=== PATIENT | female | born 1960 | race American Indian/Alaskan Native ===

== ENCOUNTER 2017-05-23 01:59 | Inpatient (IN) | payer BC ==
[2017-05-23] MEDS ORDERED: TYLENOL PO ONE (02:38)
[2017-05-23 03:35] LABS: Basophils % (Auto) 0.2 % (0.0-1.8); Hematocrit 36.5 % (30.3-42.9); Hemoglobin 12.3 gm/dl (10.1-14.3); Lymphocytes # (Auto) 0.5 K/mm3 (1.2-5.4); Lymphocytes % (Auto) 7.5 % (13.4-35.0); Mean Corpuscular HGB Conc 34 % (30-34); Mean Corpuscular Hemoglobin 31 pg (28-32); Mean Corpuscular Volume 92 fl (79-97); Monocytes # (Auto) 0.6 K/mm3 (0.0-0.8); Monocytes % (Auto) 9.4 % (0.0-7.3); Platelet Count 125 K/mm3 (140-440); Red Blood Count 3.96 M/mm3 (3.65-5.03); Red Cell Distribution Width 13.3 % (13.2-15.2)
[2017-05-23 04:00] LABS: Alanine Aminotransferase 17 units/L (7-56); BUN/Creatinine Ratio 12; Blood Urea Nitrogen 12 mg/dL (7-17); Calcium 8.6 mg/dL (8.4-10.2); Hemolysis Index 2
[2017-05-23 04:04] LABS: Creatine Kinase MB < 1.0 ng/mL (0.0-4.0)
[2017-05-23] MEDS ORDERED: BOOSTRIX IM ONE (06:52)
[2017-05-23] MEDS ORDERED: NACL 0.9% 1000 ML 1,000 ML IV ONE ×2 (06:53→07:27)
[2017-05-23 06:59] LABS: Bilirubin,Urine NEG (Negative); Blood,Urine NEG (Negative); Color,Urine Yellow (Yellow); Mucus,Urine FEW /HPF; Nitrite,Urine NEG (Negative); Protein,Urine <15 mg/dL mg/dL (Negative); Urobilinogen,Urine < 2.0 mg/dL (<2.0)
--- NOTE | 2017-05-23 07:07 | XRay Report ---
FINAL REPORT EXAM: XR CHEST 1V AP HISTORY: cough, fever, syncope TECHNIQUE: A portable upright view of the chest was submitted. FINDINGS: Heart size and mediastinum appear normal. The lungs are clear. Pleural fluid is not seen. There EKG leads overlying the chest wall. The bones and soft tissues do not show any acute changes. IMPRESSION: No active chest disease.
--- NOTE | 2017-05-23 07:21 | Cat Scan Report ---
FINAL REPORT EXAM: CT HEAD/BRAIN WO CON HISTORY: Syncope TECHNIQUE: Routine axial imaging was obtained of the brain without IV contrast. FINDINGS: The ventricular system is appropriate in size and is symmetric. There is no evidence of acute stroke or hemorrhage. The basal cisterns appear normal. The visualized sinuses are clear. The mastoid air cells are well pneumatized. IMPRESSION: Within normal limits.
[2017-05-23] MEDS ORDERED: NACL ONE (07:39)
[2017-05-23] MEDS ORDERED: cefTRIAXone 1 GM in NACL 0.9% 20 ML IV ONE (08:00)
[2017-05-23] MEDS ORDERED: ROCEPHIN/NS 1 GM/50 ML 1 GM/50 ML BAG IV ONE (08:00)
--- NOTE | 2017-05-23 10:57 | Emergency Department Report ---
ED Syncope HPI - General Chief Complaint: Syncope Stated Complaint: SYNCOPE Time Seen by Provider: 05/23/17 06:19 Source: patient, old records (no previous meditech record) Exam Limitations: no limitations - History of Present Illness Initial Comments: 57-year-old female with a past medical history of breast cancer in remission since 2016 and hyperlipidemia presents to the hospital with 3 episodes of syncope last night. Patient states she was ambulating and then woke up on the floor. She denies any preceding symptoms. Patient had a second syncopal episode while trying to stand. EMS came to scene to evaluate patient. She was told she had normal vital signs social elected not to come to the hospital. While ambulating to the bathroom later she had a second syncopal episode without any preceding symptoms. Patient has an abrasion to her left cheek and a small laceration to her anterior chin. She denies headache, chest pain, shortness of breath, nausea, vomiting, diaphoresis, melena, hematochezia, or abdominal pain. Patient has been feeling fatigued the last several days with decreased by mouth intake. Denies dysuria or fever at home. Dry cough reported. Patient had recent travel from [place] 3 days ago. Denies calf tenderness, unilateral edema, or history of PE/DVT. Patient presents to the ED with fever. - Related Data Allergies/Adverse Reactions: Allergies procaine [From Novocain] Adverse Reaction (Verified 05/23/17 02:35) Swelling ED Review of Systems ROS: Stated complaint: SYNCOPE Other details as noted in HPI Comment: All other systems reviewed and negative Other: Constitutional: No fevers chills or weight loss Eyes: No eye pain visual changes or discharge ENT: No ear pain or throat pain Neck: Denies pain Respiratory: Denies cough wheezing shortness of breath Cardiovascular: Denies chest pain, palpitations GI: Denies abdominal pain, nausea, vomiting, diarrhea : Denies dysuria Musculoskeletal: Denies back pain Skin: Denies rash, lesions, erythema Neurologic: Denies headache, numbness, weakness Psychiatric: Denies suicidal ideation, hallucinations ED Past Medical Hx - Past Medical History Previous Medical History?: Yes Hx of Cancer: Yes (left breast; remission-2016) Additional medical history: hperlipidemia - Surgical History Hx Breast Surgery: Yes (left) - Social History Smoking Status: Never Smoker Substance Use Type: None ED Physical Exam - General Limitations: No Limitations - Other Other exam information: General: No limitations, patient is alert in no acute distress Head exam: Atraumatic, normocephalic Eyes exam: Normal appearance ENT: Moist mucous membrane, normal oropharynx Neck exam: Normal inspection, full range of motion, no meningismus nontender Respiratory exam: Clear to auscultation bilateral, no wheezes, rales, crackles Cardiovascular: Normal rate and rhythm, normal heart sounds Abdomen: Soft, nondistended, and nontender, with normal bowel sounds, no rebound, or guarding Extremity: Full range of motion normal inspection no deformity, no calf tenderness or edema Back: Normal Inspection, full range of motion, no tenderness Neurologic: Alert, oriented x3, cranial nerves intact, no motor or sensory deficit Psychiatric: normal affect, normal mood Skin: Warm, dry, intact ED Course Vital Signs 05/23/17 05/23/17 05/23/17 02:23 03:48 05:54 Temperature 102.9 F H Pulse Rate 78 69 Respiratory 16 16 16 Rate Blood Pressure 116/54 104/50 Blood Pressure [Left] O2 Sat by Pulse 98 97 Oximetry 05/23/17 05/23/17 05/23/17 06:00 06:16 06:34 Temperature 99.1 F Pulse Rate 83 76 Respiratory 16 13 Rate Blood Pressure 104/50 117/49 Blood Pressure [Left] O2 Sat by Pulse 99 98 Oximetry 05/23/17 05/23/17 05/23/17 06:35 06:39 06:45 Temperature Pulse Rate 62 73 Respiratory 16 16 18 Rate Blood Pressure 117/49 117/49 Blood Pressure [Left] O2 Sat by Pulse 96 98 98 Oximetry 05/23/17 05/23/17 05/23/17 07:00 07:15 07:31 Temperature Pulse Rate 66 62 62 Respiratory 9 L 13 19 Rate Blood Pressure 105/52 103/57 103/57 Blood Pressure [Left] O2 Sat by Pulse 98 100 99 Oximetry 05/23/17 05/23/17 05/23/17 07:45 08:00 08:06 Temperature Pulse Rate 66 65 Respiratory 15 9 L 16 Rate Blood Pressure 103/57 119/56 Blood Pressure [Left] O2 Sat by Pulse 100 97 Oximetry 05/23/17 05/23/17 05/23/17 08:15 08:31 08:45 Temperature Pulse Rate 65 65 66 Respiratory 15 10 L 11 L Rate Blood Pressure 119/56 119/56 119/56 Blood Pressure [Left] O2 Sat by Pulse 100 99 100 Oximetry 05/23/17 05/23/17 05/23/17 09:01 09:15 09:31 Temperature Pulse Rate 69 62 65 Respiratory 17 9 L 11 L Rate Blood Pressure 136/77 136/77 136/77 Blood Pressure [Left] O2 Sat by Pulse 99 99 99 Oximetry 05/23/17 05/23/17 09:45 11:51 Temperature 99.4 F Pulse Rate 63 82 Respiratory 13 18 Rate Blood Pressure 136/77 Blood Pressure 122/84 [Left] O2 Sat by Pulse 98 98 Oximetry ED Medical Decision Making - Lab Data Result diagrams: 05/23/17 03:09 05/23/17 03:09 Lab Results 05/23/17 05/23/17 05/23/17 Range/Units 02:40 03:09 03:09 WBC 6.5 (4.5-11.0) K/mm3 RBC 3.96 (3.65-5.03) M/mm3 Hgb 12.3 (10.1-14.3) gm/dl Hct 36.5 (30.3-42.9) % MCV 92 (79-97) fl MCH 31 (28-32) pg MCHC 34 (30-34) % RDW 13.3 (13.2-15.2) % Plt Count 125 L (140-440) K/mm3 Lymph % (Auto) 7.5 L (13.4-35.0) % [place] % (Auto) 9.4 H (0.0-7.3) % Eos % (Auto) 0.0 (0.0-4.3) % Baso % (Auto) 0.2 (0.0-1.8) % Lymph # 0.5 L (1.2-5.4) K/mm3 [place] # 0.6 (0.0-0.8) K/mm3 Eos # 0.0 (0.0-0.4) K/mm3 Baso # 0.0 (0.0-0.1) K/mm3 Seg Neutrophils % 82.9 H (40.0-70.0) % Seg Neutrophils # 5.4 (1.8-7.7) K/mm3 D-Dimer (0-234) ng/mlDDU Sodium 141 (137-145) mmol/L Potassium 3.9 (3.6-5.0) mmol/L Chloride 102.0 (98-107) mmol/L Carbon Dioxide 22 (22-30) mmol/L Anion Gap 21 mmol/L BUN 12 (7-17) mg/dL Creatinine 1.0 (0.7-1.2) mg/dL Estimated GFR > 60 ml/min BUN/Creatinine Ratio 12 % Glucose 113 H (65-100) mg/dL Calcium 8.6 (8.4-10.2) mg/dL Total Bilirubin 0.40 (0.1-1.2) mg/dL AST 28 (5-40) units/L ALT 17 (7-56) units/L Alkaline Phosphatase 51 (35-129) units/L Total Creatine Kinase 167 H (30-135) units/L CK-MB (CK-2) < 1.0 (0.0-4.0) ng/mL CK-MB (CK-2) Rel Index 0.5 (0-4) Troponin T < 0.010 (0.00-0.029) ng/mL Total Protein 6.6 (6.3-8.2) g/dL Albumin 4.0 (3.9-5) g/dL Albumin/Globulin Ratio 1.5 % Urine Color Yellow (Yellow) Urine Turbidity Clear (Clear) Urine pH 6.0 (5.0-7.0) Ur Specific [place] 1.014 (1.003-1.030) Urine Protein <15 mg/dl (Negative) mg/dL Urine Glucose (UA) Neg (Negative) mg/dL Urine Ketones Tr (Negative) mg/dL Urine Blood Neg (Negative) Urine Nitrite Neg (Negative) Urine Bilirubin Neg (Negative) Urine Urobilinogen < 2.0 (<2.0) mg/dL Ur Leukocyte Esterase Mod (Negative) Urine WBC (Auto) 15.0 H (0.0-6.0) /HPF Urine RBC (Auto) 3.0 (0.0-6.0) /HPF U Epithel Cells (Auto) 1.0 (0-13.0) /HPF Urine Mucus Few /HPF 05/23/17 Range/Units 07:02 WBC (4.5-11.0) K/mm3 RBC (3.65-5.03) M/mm3 Hgb (10.1-14.3) gm/dl Hct (30.3-42.9) % MCV (79-97) fl MCH (28-32) pg MCHC (30-34) % RDW (13.2-15.2) % Plt Count (140-440) K/mm3 Lymph % (Auto) (13.4-35.0) % [place] % (Auto) (0.0-7.3) % Eos % (Auto) (0.0-4.3) % Baso % (Auto) (0.0-1.8) % Lymph # (1.2-5.4) K/mm3 [place] # (0.0-0.8) K/mm3 Eos # (0.0-0.4) K/mm3 Baso # (0.0-0.1) K/mm3 Seg Neutrophils % (40.0-70.0) % Seg Neutrophils # (1.8-7.7) K/mm3 D-Dimer 334.19 H (0-234) ng/mlDDU Sodium (137-145) mmol/L Potassium (3.6-5.0) mmol/L Chloride (98-107) mmol/L Carbon Dioxide (22-30) mmol/L Anion Gap mmol/L BUN (7-17) mg/dL Creatinine (0.7-1.2) mg/dL Estimated GFR ml/min BUN/Creatinine Ratio % Glucose (65-100) mg/dL Calcium (8.4-10.2) mg/dL Total Bilirubin (0.1-1.2) mg/dL AST (5-40) units/L ALT (7-56) units/L Alkaline Phosphatase (35-129) units/L Total Creatine Kinase (30-135) units/L CK-MB (CK-2) (0.0-4.0) ng/mL CK-MB (CK-2) Rel Index (0-4) Troponin T (0.00-0.029) ng/mL Total Protein (6.3-8.2) g/dL Albumin (3.9-5) g/dL Albumin/Globulin Ratio % Urine Color (Yellow) Urine Turbidity (Clear) Urine pH (5.0-7.0) Ur Specific [place] (1.003-1.030) Urine Protein (Negative) mg/dL Urine Glucose (UA) (Negative) mg/dL Urine Ketones (Negative) mg/dL Urine Blood (Negative) Urine Nitrite (Negative) Urine Bilirubin (Negative) Urine Urobilinogen (<2.0) mg/dL Ur Leukocyte Esterase (Negative) Urine WBC (Auto) (0.0-6.0) /HPF Urine RBC (Auto) (0.0-6.0) /HPF U Epithel Cells (Auto) (0-13.0) /HPF Urine Mucus /HPF - EKG Data -: EKG Interpreted by Pr EKG shows normal: sinus rhythm, axis (1), QRS complexes (81), ST-T waves ( anteroseptal infarct) Rate: normal (76) - Radiology Data Radiology results: report reviewed Read by radiology CT head: No acute findings Chest x-ray: No acute finding VQ scan: normal - Medical Decision Making Pt states she had an allergy to IV dye therefore V/Q was obtained for elevated d -dimer recent travel history and associated syncope. No signs of PE at this time. I suspect the patient had a UTI which resulted in poor by mouth intake and dehydration as evident by orthostatic vitals. Treatment initiated in the ED. Patient stable. Hospitalist informed - Differential Diagnosis pneumonia, uti, dehydration, pe, arrhythmia, ICA Critical Care Time: No Critical care attestation.: If time is entered above; I have spent that time in minutes in the direct care of this critically ill patient, excluding procedure time. ED Disposition Clinical Impression: Syncope, UTI (urinary tract infection), Dehydration, Thrombocytopenia, Fever Disposition: TO HOME OR SELFCARE Is pt being admited?: Yes Condition: Stable Time of Disposition: 11:50 (Dr Matthew/hosp)
--- NOTE | 2017-05-23 11:46 | Nuclear Medicine Report ---
LUNG SCAN, VENTILATION AND PERFUSION: Inhalation of Xenon gas demonstrates a normal distribution of the activity throughout both lungs. The wash out phases show no focal retention of activity. After injection of Technetium 99m macroaggregated albumin gamma camera imaging of the lungs in multiple projections demonstrates normal pulmonary contours with a homogeneous distribution of activity. No focal areas of perfusion deficiency are identified. IMPRESSION: Normal study.
--- NOTE | 2017-05-23 13:03 | History and Physical Report ---
History of Present Illness Chief complaint: I passed out History of present illness: 57 YO Female with HLD, Breast Cancer presents to ED for evaluation. Pt states that she has passed out 3 times over the past 24 hours. Pt states that she was ambulating when she lost consciousness and subsequently woke up on the floor. Patient denies any preceding symptoms. EMS was notified and upon arrival the pateint was found to be lethargic and was transported to [facility] for evaluation. Patient has an abrasion to her left cheek and a small laceration to her anterior chin. Pt denies headache, vertigo, chest pain, shortness of breath, NVD, melena, dysuria, hematochezia, or abdominal pain. Patient acknowledges feeling fatigued with decreased oral intake. Pt seen and evaluated in ED and found to have lethargy and admitted to medical floor. Past History Past Medical History: hyperlipidemia Past Surgical History: Other (breast surgery) Social history: single. denies: smoking, alcohol abuse, prescription drug abuse Family history: hypertension Medications and Allergies Allergies Allergy/AdvReac Type Severity Reaction Status Date / Time procaine [From Novocain] AdvReac Swelling Verified 05/23/17 02:35 Home Medications Medication Instructions Recorded Confirmed Last Taken Type Atorvastatin Calcium [Lipitor] 20 mg PO HS 05/23/17 05/23/17 05/21/17 History Biotin 5 mg PO DAILY 05/23/17 05/23/17 05/21/17 History Cholecalciferol (Vitamin D3) 1,000 unit PO DAILY 05/23/17 05/23/17 05/21/17 History [Vitamin D3] Cyanocobalamin (Vitamin B-12) 500 mcg PO DAILY 05/23/17 05/23/17 05/21/17 History [Vitamin B-12] Multivit/Folic Acid/Vit K1 1 each PO DAILY 05/23/17 05/23/17 05/21/17 History [One-A-Day Women's 50 Plus Tab] [place] Oil/Provencal-3 Fatty Acids 4 each PO DAILY 05/23/17 05/23/17 05/21/17 History [[place] Oil 1,000 mg Softgel] Tamoxifen Citrate 10 mg PO BID 05/23/17 05/23/17 05/21/17 History Tocopherol [Vitamin E Cap] 400 unit PO BID 05/23/17 05/23/17 05/21/17 History Review of Systems Constitutional: no weight loss, no weight gain, no fever Ears, nose, mouth and throat: no ear pain, no ear discharge, no tinnitis, no decreased hearing, no nose pain, no nasal congestion, no nasal discharge Breasts: no change in shape, no swelling, no mass Cardiovascular: syncope, no chest pain, no orthopnea, no palpitations, no rapid/ irregular heart beat, no edema, no shortness of breath Respiratory: no cough, no cough with sputum, no excessive sputum, no hemoptysis , no shortness of breath Gastrointestinal: no abdominal pain, no nausea, no vomiting, no diarrhea, no constipation Genitourinary Female: no pelvic pain, no flank pain, no menorrhagia, no dysuria , no urinary frequency Rectal: no pain, no incontinence, no bleeding Musculoskeletal: no neck stiffness, no neck pain, no shooting arm pain, no arm numbness/tingling, no low back pain Integumentary: no rash, no pruritis, no redness, no sores, no wounds, no jaundice Neurological: syncope, no paralysis, no weakness, no parathesias, no numbness, no tingling, no seizures Psychiatric: no anxiety, no memory loss, no change in sleep habits, no sleep disturbances, no insomnia, no hypersomnia, no change in appetite Endocrine: no cold intolerance, no heat intolerance, no polyphagia, no excessive thirst, no polydipsia, no polyuria, no nocturia Hematologic/Lymphatic: no easy bruising, no easy bleeding Allergic/Immunologic: no urticaria, no allergic rhinitis, no wheezing Exam - Constitutional Vitals: Temp Pulse Resp BP Pulse Ox 99.4 F 82 18 122/84 98 05/23/17 11:51 05/23/17 11:51 05/23/17 11:51 05/23/17 11:51 05/23/17 11:51 General appearance: Present: mild distress - EENT Eyes: Present: PERRL ENT: hearing intact, clear oral mucosa - Neck Neck: Present: supple, normal ROM - Respiratory Respiratory effort: normal Respiratory: bilateral: CTA - Cardiovascular Heart Sounds: Present: S1 & S2. Absent: rub, click - Extremities Extremities: pulses symmetrical, No edema Peripheral Pulses: within normal limits - Abdominal General gastrointestinal: Present: soft, non-tender, non-distended, normal bowel sounds Female genitourinary: Present: normal - Integumentary Integumentary: Present: clear, warm, dry - Musculoskeletal Musculoskeletal: gait normal, strength equal bilaterally - Psychiatric Psychiatric: appropriate mood/affect, intact judgment & insight - Neurologic Neurologic: CNII-XII intact, moves all extremities Results - Labs CBC & Chem 7: 05/23/17 03:09 05/23/17 03:09 Labs: Abnormal lab results 05/23/17 05/23/17 05/23/17 Range/Units 02:40 03:09 03:09 Plt Count 125 L (140-440) K/mm3 Lymph % (Auto) 7.5 L (13.4-35.0) % [place] % (Auto) 9.4 H (0.0-7.3) % Lymph # 0.5 L (1.2-5.4) K/mm3 Seg Neutrophils % 82.9 H (40.0-70.0) % D-Dimer (0-234) ng/mlDDU Glucose 113 H (65-100) mg/dL Total Creatine Kinase 167 H (30-135) units/L Urine WBC (Auto) 15.0 H (0.0-6.0) /HPF 05/23/17 Range/Units 07:02 Plt Count (140-440) K/mm3 Lymph % (Auto) (13.4-35.0) % [place] % (Auto) (0.0-7.3) % Lymph # (1.2-5.4) K/mm3 Seg Neutrophils % (40.0-70.0) % D-Dimer 334.19 H (0-234) ng/mlDDU Glucose (65-100) mg/dL Total Creatine Kinase (30-135) units/L Urine WBC (Auto) (0.0-6.0) /HPF Assessment and Plan - Patient Problems (1) Unconscious state Current Visit: Yes Status: Acute Plan to address problem: CT Head, neuro checks, EEG, Echo, remote telemetry monitoring, D dimer, supportive care. (2) Breast cancer Current Visit: Yes Status: Acute Qualifiers: Patient sex: female Laterality: left Plan to address problem: Currently in Remission, outpatient Oncology f/u. Will conduct MR brain to assess for metastasis or recurrent disease. (3) HLD (hyperlipidemia) Current Visit: Yes Status: Acute Plan to address problem: continue statin therapy. (4) DVT prophylaxis Current Visit: Yes Status: Acute
[2017-05-23] MEDS ORDERED: ZOFRAN IV PRN (13:06)
[2017-05-23] MEDS ORDERED: DULCOLAX PR PRN (13:06)
[2017-05-23] MEDS ORDERED: TYLENOL PO PRN (13:06)
[2017-05-23] MEDS ORDERED: PROVENTIL IH PRN (13:06)
[2017-05-23] MEDS ORDERED: MILK OF MAGNESIA PO PRN (13:06)
[2017-05-23] MEDS ORDERED: ATIVAN IV ONE (18:00)
[2017-05-23] MEDS: TAMOXIFEN CITRATE 10 MG PO SCH (22:06)
[2017-05-23] MEDS: VITAMIN E CAP PO SCH (22:07)
[2017-05-24] MEDS ORDERED: FLONASE NS PRN (00:32)
[2017-05-24] MEDS ORDERED: ATIVAN IV ONE (09:45)
[2017-05-24] MEDS ORDERED: BIOTIN 5 MG PO SCH (10:00)
[2017-05-24] MEDS ORDERED: FOLIC ACID PO SCH (10:00)
[2017-05-24] MEDS ORDERED: FATTY ACIDS PO SCH (10:00)
[2017-05-24] MEDS ORDERED: SALMON OIL PO SCH (10:00)
[2017-05-24] MEDS ORDERED: NON-FORMULARY (Cholecalciferol (Vitamin D3) [Vitamin D3] 1,000 UNIT) PO SCH (10:00)
[2017-05-24] MEDS ORDERED: OMEGA PO SCH (10:00)
[2017-05-24] MEDS ORDERED: MULTIVIT PO SCH (10:00)
[2017-05-24] MEDS ORDERED: NON-FORMULARY (Cyanocobalamin (Vitamin B-12) [Vitamin B-12] 500 MCG) PO SCH (10:00)
[2017-05-24] MEDS ORDERED: VIT K1 PO SCH (10:00)
--- NOTE | 2017-05-24 12:44 | Magnetic Resonance Report ---
MRI BRAIN WITHOUT CONTRAST: 05/23/17 13:06:00 CLINICAL: Syncope. TECHNIQUE: Axial diffusion, T1, T2, FLAIR, gradient echo T2*, and sagittal T1 sequences on a 1.5 Graciela magnet. FINDINGS: Normal ventricles and sulci. No restricted diffusion. Few tiny bilateral nonspecific frontal lobe focal white matter hyperintensities on FLAIR and T2. No other abnormal signal. No mass or mass effect. No hemorrhage, edema or extra-axial collection. Normal pituitary and optic chiasm. The brainstem and cerebellum are normal. Intact vascular flow voids. Mucoperiosteal thickening of bilateral ethmoid, right maxillary and left sphenoid sinuses. No air-fluid levels. The orbits, and soft tissues are normal. Normal calvarium and skull base. IMPRESSION: Mild sinusitis and otherwise negative.
[2017-05-24] MEDS: TAMOXIFEN CITRATE 10 MG PO SCH ×2 (12:59→22:27)
[2017-05-24] MEDS: VITAMIN E CAP PO SCH ×2 (13:00→22:28)
[2017-05-24] MEDS: VITAMIN D3 PO SCH (13:00)
[2017-05-24] MEDS: VITAMIN B-12 PO SCH (13:00)
[2017-05-24] MEDS: THERAGRAN-M Tab PO SCH (13:00)
[2017-05-24] MEDS ORDERED: XYLOCAINE 1% MPF 5 mL INFILTRATI ONE (14:19)
[2017-05-24] MEDS ORDERED: ROCEPHIN IM SCH (14:30)
[2017-05-24] MEDS: cefTRIAXone 2 GM in NACL 0.9% 20 ML IV SCH (23:12)
--- NOTE | 2017-05-24 23:33 | Progress Note ---
Subjective Date of service: 05/24/17 Objective - Constitutional Vitals: Vital Signs - 12hr 05/24/17 05/24/17 15:42 21:46 Temperature 99.4 F Pulse Rate 73 Respiratory 18 Rate Blood Pressure 115/50 O2 Sat by Pulse 97 98 Oximetry - Labs CBC & Chem 7: 05/23/17 03:09 05/23/17 03:09
[2017-05-25 05:14] LABS: Alanine Aminotransferase 18 units/L (7-56); Albumin 3.4 g/dL (3.9-5); BUN/Creatinine Ratio 10; Blood Urea Nitrogen 8 mg/dL (7-17); Calcium 8.3 mg/dL (8.4-10.2); Hemolysis Index 2
[2017-05-25 06:03] LABS: Hematocrit 31.9 % (30.3-42.9); Hemoglobin 10.9 gm/dl (10.1-14.3); Mean Corpuscular HGB Conc 34 % (30-34); Mean Corpuscular Hemoglobin 31 pg (28-32); Mean Corpuscular Volume 91 fl (79-97); Platelet Count 112 K/mm3 (140-440); Red Cell Distribution Width 12.9 % (13.2-15.2)
[2017-05-25] MEDS: cefTRIAXone 2 GM in NACL 0.9% 20 ML IV SCH (09:47)
[2017-05-25] MEDS: VITAMIN B-12 PO SCH (09:48)
[2017-05-25] MEDS: TAMOXIFEN CITRATE 10 MG PO SCH (09:48)
[2017-05-25] MEDS: THERAGRAN-M Tab PO SCH (09:48)
[2017-05-25] MEDS: VITAMIN D3 PO SCH (09:49)
[2017-05-25] MEDS: VITAMIN E CAP PO SCH (09:49)
[2017-05-25 09:57] LABS: Eosinophils % (Manual) 0 % (0.0-4.3); Total Cells Counted 100
[2017-05-25 09:59] LABS: Anisocytosis 1+
[2017-05-25 10:00] LABS: Acanthocytes Few; Burr Cells Few; Poikilocytosis 1+
[2017-05-25 10:01] LABS: Platelet Estimate Cons
--- NOTE | 2017-05-25 15:26 | Query- Nutrition ---
Miguel A Pisano Date:___05/25/2017 [employer] Treatment Plant Operator/CDS:___Janett Phone#:___[phone] Exercise your independent professional judgment when responding to query. Questions asked do not imply a particular answer is desired or expected. We greatly appreciate your clarification on this issue. Clinical Documentation States: 57 Year old female was admitted on 05/23/2017, she has passed out 3 times over the past 24 hours. The IM (Dr. Matthew) H&P note states "Patient acknowledges feeling fatigued with decreased oral intake. Assessment and Plan (1) Unconscious state (2) Breast cancer." Clinical Findings Show: Albumin: 3.4 Please select the most appropriate option 3 [x] Mild Malnutrition [] Mild - Moderate Malnutrition [] Moderate - Severe Malnutrition [] Severe Malnutrition Serum Albumin 2.8 to 3.4 g/dl or Pre-albumin 5 to 17 mg/dl1,2 Inadequate nutritional intake1,2,3,4 NPO > 5 days Weight loss: 5% in 1 month or 7.5% in 3 months or 10% in 6 months1, 3,4 BMI 16 to 18.4 or Weight <90% of ideal body weight1,2,3,4 Serum Albumin < 2.8 g/ dl1,2 Lymphocytes < 1500/ L2 Inadequate nutritional intake3, high stress e.g. major trauma, sepsis,pancreatitis, tracy etc. Decubitus ulcers1,2, , skin breakdown2, easy hair pluckability2 Weight <80% standard for height2 Triceps skin fold <3 mm2 Mid-arm muscle circumference <15 cm2 Creatinine-height index <60% standard2 [ ] Cachexia [ ] Emaciated w/Malnutrition [ ] Other: [ x] Unable to determine [ ] Comment/Explanation: Present on Admission: [x ] Yes (Y) [ ] Clinically undeterminable (W) [ ] No (N) Please also document response in your Progress Notes and/or Discharge Summary and indicate if the condition was present on admission. MTDD
--- NOTE | 2017-05-25 15:30 | Query- SIRS ---
Miguel A Barton Date:__05/25/2017 Human Services Instructor/COLLEEN:___Janett Phone#:_[phone] Exercise your independent professional judgment when responding to query. Questions asked do not imply a particular answer is desired or expected. We greatly appreciate your clarification on this issue. Clinical Documentation States: 57 Year old female was admitted on 05/23/2017, she has passed out 3 times over the past 24 hours. Clinical Findings Show (include reference to source document): Temp: 102.9 WBC: 2.2 Based on the above clinical scenario and your knowledge of the patient, please indicate the most appropriate diagnosis: [ ] SIRS (non-infectious) with Acute Organ Dysfunction [x ] SIRS (non-infectious) without Acute Organ Dysfunction [ ] Other: [ ] Unable to determine [ ] Comment/Explanation: Present on Admission: [ x] Yes (Y) [ ] Clinically undeterminable (W) [ ] No (N) Please also document response in your Progress Notes and/or Discharge Summary and indicate if the condition was present on admission. MATTHEW
--- NOTE | 2017-05-25 15:46 | Discharge Summary ---
Providers - Providers Date of Admission: 05/23/17 13:06 Date of discharge: 05/25/17 Attending physician: SAIMA PRESTON 05/23/17 19:58 Consult to Wound/ET Nurse [CONS] Routine Reason For Exam: wound eval 05/24/17 14:19 Physical Therapy Evaluation and Treat [CONS] Routine Comment: Reason For Exam: debility Primary care physician: PERRY LAGUNAS Hospitalization Condition: Stable Disposition: DC-30 STILL A PATIENT Exam - Constitutional Vitals: Temp Pulse Resp BP Pulse Ox 99.6 F 59 L 20 129/41 95 05/25/17 07:13 05/25/17 07:13 05/25/17 07:13 05/25/17 07:13 05/25/17 07:13 Plan Activity: no restrictions Diet: regular Follow up with: PERRY LAGUNAS MD [Primary Care Provider] - 3-5 Days LAQUITA ROBERTS MD [Staff Physician] - 7 Days
[2017-05-25 16:57] VITALS: BP 134/66
== END 2017-05-25 19:10 | disposition home or self-care (01) | DRG 690 ==
LOC: ED 01:59 → 3A 13:06
PROVIDERS: ADMIT Internal Medicine; ATTEND Internal Medicine
DX: N39.0 Urinary tract infection, site not specified (principal); E44.1 Mild protein-calorie malnutrition; R65.10 Systemic inflammatory response syndrome (SIRS) of non-infectious origin without acute organ dysfunction; R55 Syncope and collapse; E78.5 Hyperlipidemia, unspecified; S01.81XA Laceration without foreign body of other part of head, initial encounter; X58.XXXA Exposure to other specified factors, initial encounter; E86.0 Dehydration; D69.6 Thrombocytopenia, unspecified; C50.912 Malignant neoplasm of unspecified site of left female breast; Z60.2 Problems related to living alone; Z79.899 Other long term (current) drug therapy; Y93.89 Activity, other specified; Y92.89 Other specified places as the place of occurrence of the external cause; Y99.8 Other external cause status; Z85.3 Personal history of malignant neoplasm of breast; Z82.49 Family history of ischemic heart disease and other diseases of the circulatory system
CPT/HCPCS: 36415; 70450; 70551; 71045; 78582; 80048; 80053; 81001; 82550; 82553; 84484; 85007; 85025; 85379; 87040; 87086; 90471; 90715; 93005; 93010; 93306; 95819; 96374; A9270-GY; A9540; A9558; J0696; J2060; J7030